=== PATIENT | male | born 1995 | race Caucasian/White ===

== ENCOUNTER 2017-08-11 12:00 | Emergency (ER) | payer OTHER ==
[~2017-08-11] VITALS: Ht 182.9 cm; Wt 105.2 kg
[2017-08-11 12:06] VITALS: BP 134/74
[2017-08-11] MEDS ORDERED: PROPARACAINE OPHTH 0.5%, 15ML EACHEYE ONE (12:30)
[2017-08-11] MEDS ORDERED: FLUORESCEIN OPHTHALMIC 1 MG STRIP EACHEYE ONE (12:30)
[2017-08-11] MEDS ORDERED: PROPARACAINE OPHTH 0.5%, 15ML ONE (12:33)
[2017-08-11] MEDS ORDERED: FLUORESCEIN OPHTHALMIC 1 MG STRIP ONE (12:33)
[2017-08-11] MEDS ORDERED: IBUPROFEN 200 MG TABLET ONE (12:46)
[2017-08-11] MEDS ORDERED: IBUPROFEN 200 MG TABLET PO ONE (13:00)
== END 2017-08-11 13:45 | disposition home or self-care (01) ==
LOC: ED 13:35
DX: S05.01XA Injury of conjunctiva and corneal abrasion without foreign body, right eye, initial encounter (principal); X58.XXXA Exposure to other specified factors, initial encounter; Y93.89 Activity, other specified; Y92.89 Other specified places as the place of occurrence of the external cause; Y99.9 Unspecified external cause status
CPT/HCPCS: 99283